=== PATIENT | male | born 1970 | race Caucasian/White ===

== ENCOUNTER 2024-08-12 06:18 | Day surgery (SDC) | payer OTHER, SELFPAY | END 2024-08-12 13:25 | disposition home or self-care (01) | LOC: GI 06:18 | PROVIDERS: ATTENDING PHYSICIAN Internal Medicine Gastroenterology | DX: Z12.11 Encounter for screening for malignant neoplasm of colon (principal); K64.8 Other hemorrhoids | CPT/HCPCS: G0121 ==

== ENCOUNTER 2025-01-07 21:11 | Emergency (ER) | payer OTHER, SELFPAY ==
[2025-01-07 21:18] VITALS: BP 177/91
--- NOTE | 2025-01-07 23:39 | ED.GENMED ---
History of Present Illness
General
Chief Complaint: Skin Surface Trauma
Source: patient
Exam Limitations: none
Time Seen by Provider: 01/07/25 23:26
Nursing documentation reviewed up to this point in time: agreed with
History of Present Illness
History of Present Illness:
The patient is a 54-year-old male with no pmh no blood thinners who presents to the ER today with concerns of a fingertip injury sustained while working with a table saw. The incident occurred when the patient was pushing wood through the spinning
blade, resulting in an avulsion-type injury to the fingertip. He was not wearing protective gloves at the time. The patient describes significant bleeding and has a burning sensation at the site. The cut is superficial, and due to its nature, it is
deemed not suitable for sutures. The patient reports discomfort with blood, indicating some associated distress.
He denies any other injuries. He denies any numbness or tingling. He denies any color changes in his extremities.
Review of Systems
Review of Systems
All Other Systems: ROS reviewed and negative except as documented in HPI and ROS
Phy Exam
Physical Exam
Physical Exam:
General: Patient is well appearing and in no acute distress; non-toxic
Skin: Superficial avulsion to the skin of the tip of the left thumb, no tendon or bone exposure, no evidence of repairable laceration
Head: Normocephalic, atraumatic
Eyes: Sclera non-icteric. EOMs intact.
Cardiac: Regular rate
Peripheral Vascular: Brisk capillary refill
Pulm: Normal respiratory effort
Abdomen: No abdominal tenderness
Musculoskeletal: No bony tenderness to palpation of the left wrist, phalanges, metacarpals. 5/5 strength. Intact flexion and extension
Neuro: CN II-XII intact, no focal neurologic deficits.
Psychiatric: Appropriate mood and affect.
Course
Orders/Labs/Results
Orders:
Orders
01/07/25 23:39
Lidocaine/Epinephrine/Tetracai [Let Topical Anesthetic Gel] 3 ml TOPICAL NOW STA
Tetanus/Diphth/Acelpertussis [Adacel] 0.5 ml IM .ONCE ONE
CR Finger(s)/thumb Min 2 Vw Lt Urgent
Comment:
Reason For Exam: thumb pain
Vital Signs
Initial and Last Documented VS:
Initial Vital Signs
Temp Pulse Resp BP Pulse Ox
98.5 F 76 15 177/91 97
01/07/25 21:18 01/07/25 21:18 01/07/25 21:18 01/07/25 21:18 01/07/25 21:18
Last Documented Vital Signs
Temp Pulse Resp BP Pulse Ox
98.5 F 76 15 177/91 97
01/07/25 21:18 01/07/25 21:18 01/07/25 21:18 01/07/25 21:18 01/07/25 23:39
MDM/Problems Addressed
Differential Diagnosis Includes:
abrasion, laceration, contusion
MDM/Problems Addressed:
54-year-old male no past medical history does not take any blood thinners presents to the ER today after he cut his finger on a table saw. Not wearing protective gloves at the time. He reports that the bleeding would not stop. On physical exam,
he has a superficial avulsion of the skin of the left thumb, no evidence of repairable laceration. The wound was thoroughly irrigated. Dermabond applied for hemostasis. Dressing applied. Discussed follow-up with primary for reevaluation. X-ray
shows no evidence of phalanx fracture or foreign body. Patient stable for discharge. Discussed wound care and return precautions.
*Pulse Oximetry
SaO2: 97
Oxygen Mode of Delivery: Room air
Patient hypoxic: no
*Critical Care Note
Total Time (30-74mins, 75-104mins- exclusive of procedures): Not Applicable
ED Attending Note
-
Portions of this chart may have been created with voice recognition software.� Occasional wrong word or��sound alike� substitutions may have occurred due to the inherent limitations of voice recognition software.
Discharge Plan
Departure
Patient Disposition: Home (Routine Discharge)
Date of Disposition: 01/08/25
Time of Disposition: 00:57
Patient with high blood pressure during this ER visit?: Yes
Condition: Good
Discharge Problem:
Avulsion of skin
Instructions: Wound Care (DC), BLOOD PRESSURE
Referrals:
Miguel Roland MD [Family Provider, [facility]]
Activity Restrictions/Additional Instructions:
Please keep wound dry and dressing in place for 24 hours.
After 24 hours, you can remove dressing. Please not scrub the wound. Please do not use alcohol, hydrogen peroxide, or petroleum jelly over the wound as this will dissolve glu.
PLEASE RETURN TO THE ER SHOULD YOU DEVELOP SIGNS OF INFECTION SUCH FEVERS OR CHILLS, SURROUNDING REDNESS TO THE WOUND, PURULENT DRAINAGE FROM THE WOUND, OR ANY OTHER SIGNS OR SYMPTOMS WORRISOME TO YOU.
Interventions
Interventions:
*Risk Screen - Suicide Last Done: 01/07/25 21:18
*General Assessment Last Done: 01/07/25 21:18
*Neglect/Abuse Screening Last Done: 01/07/25 21:18
*ED COVID-19 Vaccine History Last Done: 01/07/25 21:18
*ED Influenza Vaccine History Last Done: 01/07/25 21:18
*Nursing Disposition Last Done: 01/08/25 01:34
ED-Skin Assessment Last Done: 01/08/25 01:32
Discharge Date and Time
Discharge Date/Time: 01/08/25 01:34
Print Language: SYRIAC
[2025-01-07] MEDS: LET TOPICAL ANESTHETIC GEL 3 ML TOPICAL (23:56)
[2025-01-07] MEDS: ADACEL 0.5 ML IM (23:56)
== END 2025-01-08 01:34 | disposition home or self-care (01) ==
LOC: EMR 21:11
PROVIDERS: EMERGENCY PHYSICIAN Student in an Organized Health Care Education/Training Program; FAMILY PHYSICIAN Family Medicine
DX: S61.012A Laceration without foreign body of left thumb without damage to nail, initial encounter (principal); W31.2XXA Contact with powered woodworking and forming machines, initial encounter; Z23 Encounter for immunization
CPT/HCPCS: 99283; 12001; 90471; 73140; 90715